=== PATIENT | female | born 1985 | race Two or more races ===

== ENCOUNTER 2025-08-24 20:59 | Emergency (ER) | payer MEDICAID, OTHER ==
[~2025-08-24] VITALS: Ht 165.1 cm; Wt 79.4 kg
[2025-08-24] MEDS ORDERED: IV NS 0.9% 250 ML IV ONE (21:25)
[2025-08-24] MEDS ORDERED: CT SWABBABLE VALVE TRANS SET 1 EA INFUS.SET MC ONE (21:25)
[2025-08-24] MEDS ORDERED: IOHEXOL-300 100 ML VIAL IV ONE (21:25)
[2025-08-24] MEDS ORDERED: ONDANSETRON HCL/PF 4 MG/2 ML VIAL ONE (21:38)
[2025-08-24] MEDS ORDERED: MORPHINE SULFATE INJ 4 MG/ML DISP.SYRIN ONE (21:38)
[2025-08-24 21:39] LABS: PLATELET COUNT (AUTO) 326 K/uL (150-450); RED BLOOD CELL COUNT(AUTO) 4.41 MIL/uL (4.0-5.2); RED CELL DISTRIBUTION WIDTH 13.8 % (11.5-15.0); WHITE BLOOD COUNT (AUTO) 7.9 K/uL (4.3-11.0)
[2025-08-24] MEDS: ONDANSETRON HCL/PF - ER 4 MG/2 ML VIAL IV ONE (21:40)
[2025-08-24] MEDS: MORPHINE SULFATE INJ 2 MG/ML DISP.SYRIN IV ONE (21:42)
[2025-08-24 21:47] LABS: CALCIUM, SERUM 8.8 mg/dL (8.5-10.1); CREATININE 0.6 mg/dL (0.6-1.3); SODIUM SERUM 140.0 mmol/L (136-145); UREA NITROGEN, BLOOD 7.0 mg/dL (7-18)
[2025-08-24 21:52] LABS: ASPARTATE AMINOTRANSFERASE 62.0 U/L (15-37); TOTAL PROTEIN, SERUM 7.5 g/dL (6.4-8.2)
[2025-08-24 21:58] LABS: INR 1.03 (0.91-1.10)
[2025-08-25 00:02] LABS: APPEARANCE,URINE CLEAR (CLEAR); BLOOD, URINE TRACE-INTA Ery/uL (NEGATIVE); LEUKOCYTE ESTERASE ,URINE NEGATIVE (NEGATIVE); NITRITE, URINE NEGATIVE (NEGATIVE); UGLUCOSE NEGATIVE (NEGATIVE)
[2025-08-25 00:23] LABS: ADD URINE CULTURE NO; SQUAMOUS EPITHELIAL CELL,UR 0-2 /HPF (None Seen)
[2025-08-25] MEDS ORDERED: HYDR-4303 PO (03:06)
[2025-08-25] MEDS ORDERED: MORPHINE SULFATE INJ 4 MG/ML DISP.SYRIN ONE (03:10)
[2025-08-25] MEDS ORDERED: ONDANSETRON HCL/PF 4 MG/2 ML VIAL ONE (03:10)
[2025-08-25] MEDS: ONDANSETRON HCL/PF 4 MG/2 ML VIAL IVP ONE (03:15)
[2025-08-25] MEDS: MORPHINE SULFATE INJ 2 MG/ML DISP.SYRIN IV ONE (03:15)
[2025-08-25 03:35] VITALS: BP 110/80; TEMP 98; O2SAT 99
== END 2025-08-25 03:35 | disposition home or self-care (01) ==
LOC: ER 21:07
DX: G89.18 Other acute postprocedural pain (principal); R10.11 Right upper quadrant pain; Z90.49 Acquired absence of other specified parts of digestive tract
CPT/HCPCS: 99285; 74177; 96374; 96375; 85025; 85610; 81001; 36415; 80053; 96376; J2270 ×2; J2405 ×3; J7050; Q9967